=== PATIENT | male | born 1960 | race Hispanic/Latino ===

== ENCOUNTER 2020-07-08 13:43 | Emergency (ER) | payer SELFPAY ==
[2020-07-08] MEDS ORDERED: HYDROcodone/ACETAMINOPHEN 10-325MG TAB PO ONE (13:49)
[2020-07-08] MEDS ORDERED: LIDOCAINE (1%) 10 MG/1 ML VIAL 20 ML MDV INFILTRATI ONE (13:49)
--- NOTE | 2020-07-08 14:34 | XRay Report ---
LEFT HAND 3 VIEWS INDICATION / CLINICAL INFORMATION: lac base of index finger;skill saw. COMPARISON: None available. FINDINGS: Metallic foreign bodies are demonstrated in the dorsum of the hand at the level of the third and four th metacarpal phalangeal joints. No appreciable fracture or other skeletal abnormality. Signer Name: Feng Ty MD Signed: 07/08/2020 2:29 PM Workstation Name: [id number]
[2020-07-08] MEDS ORDERED: DIPHtheria,PERTUSSIS(ACELL),TETANUS VACCINE/PF 0.5 ML VIAL IM ONE (15:05)
--- NOTE | 2020-07-08 16:23 | Emergency Department Report ---
ED Laceration HPI - HPI Chief Complaint: Wound/Laceration Stated Complaint: LT HAND INJURY Time Seen by Provider: 07/08/20 14:53 Occurred When: Today Location: Upper Extremity (Left hand) Tetanus Status: Not up to Date Laceration Symptoms: Yes Pain, No Foreign Body Sensation, No Numbness, No Weakness Other History: 60-year-old male presents to the emergency room for left index finger laceration that happened this afternoon. Patient states that he was using a saw to cut wood for furniture and cut himself. Patient reports he has not had a tetanus shot in probably 30 years. Patient complains of pain. Patient has no other injuries. Patient reports no past medical history as he really does not follow-up with a primary care provider. ED Review of Systems ROS: Stated complaint: LT HAND INJURY Other details as noted in HPI Comment: All other systems reviewed and negative ED Past Medical Hx - Past Medical History Previous Medical History?: No - Surgical History Past Surgical History?: No - Social History Smoking Status: Current Every Day Smoker Substance Use Type: None - Medications Home Medications: Home Medications Medication Instructions Recorded Confirmed Last Taken Type Acetaminophen/Codeine [Tylenol 1 tab PO Q6H PRN #12 tab 07/08/20 Unknown Rx /Codeine # 3 tab] Clindamycin [Clindamycin CAP] 300 mg PO Q8H 10 Days #30 cap 07/08/20 Unknown Rx amLODIPine 5 mg PO DAILY #30 tab 07/08/20 Unknown Rx Laceration Physical Exam - Exam General: Vital signs noted. No distress. Alert and acting appropriately. ED Course Vital Signs 07/08/20 13:49 Temperature 97.7 F Pulse Rate 87 Respiratory 18 Rate Blood Pressure 179/122 O2 Sat by Pulse 95 Oximetry - Laceration /Wound Repair Left Finger Wound Location: upper extremity (Left lower medial index finger) Wound Length (cm): 4 Wound Explored: no foreign body removed Irrigated w/ Saline (ccs): 60 Betadine Prep?: Yes Anesthesia: 1% Lidocaine Volume Anesthetic (ccs): 10 Wound Debrided: minimal Wound Repaired With: sutures Suture Size/Type: 3:0 Number of Sutures: 7 Layer Closure?: No Sterile Dressing Applied?: Yes Progress: Patient tolerated well ED Medical Decision Making - Medical Decision Making 60-year-old male presents to the emergency room for left index finger laceration that happened this afternoon. Patient states that he was using a saw to cut wood for furniture and cut himself. Patient reports he has not had a tetanus shot in probably 30 years. Patient complains of pain. Patient has no other injuries. Patient reports no past medical history as he really does not follow-up with a primary care provider. Laceration repair 2 left index finger. Instructed patient to complete antibiotics. Instructed patient to start hypertension medicine and encouraged him to follow-up with a community provider. [facility] to return back to the emergency room to have sutures removed in 10 to 14 days. Critical care attestation.: If time is entered above; I have spent that time in minutes in the direct care of this critically ill patient, excluding procedure time. ED Disposition Clinical Impression: Laceration of left hand, HTN (hypertension) Disposition: - TO HOME OR SELFCARE Is pt being admited?: No Does the pt Need Aspirin: No Condition: Stable Instructions: Hypertension, Adult, [id number], Sutured Wound Care, [id number], Hypertension (ED) Additional Instructions: Complete antibiotics as prescribed. Pain medication as needed. Do not operate heavy machinery while taking pain medication. You can also incorporate ibuprofen for your pain management. You must return back in 10 to 14 days to have sutures removed. Prescriptions: amLODIPine 5 mg PO DAILY #30 tab Clindamycin [Clindamycin CAP] 300 mg PO Q8H 10 Days #30 cap Acetaminophen/Codeine [Tylenol /Codeine # 3 tab] 1 tab PO Q6H PRN #12 tab PRN Reason: Pain , Severe (7-10) Referrals: PRIMARY CAREMD [Primary Care Provider] - 3-5 Days [facility] [Provider Group] - 3-5 Days
[2020-07-08] MEDS ORDERED: HYDROcodone/ACETAMINOPHEN 10-325MG TAB ONE (16:48)
[2020-07-08 22:22] VITALS: BP 168/107
== END 2020-07-08 16:00 | disposition home or self-care (01) ==
LOC: ED 13:43
DX: S61.211A Laceration without foreign body of left index finger without damage to nail, initial encounter (principal); F17.200 Nicotine dependence, unspecified, uncomplicated; Z79.899 Other long term (current) drug therapy; W31.89XA Contact with other specified machinery, initial encounter; Y93.89 Activity, other specified; Y92.89 Other specified places as the place of occurrence of the external cause; Y99.8 Other external cause status
CPT/HCPCS: 90471; 90715; 99283